=== PATIENT | female | born 1990 | race Caucasian/White ===

== ENCOUNTER 2017-05-30 05:44 | Emergency (ER) | payer OTHER ==
[~2017-05-30] VITALS: Ht 157.5 cm; Wt 56.8 kg
[~2017-05-30 05:44] MED LIST: DESO1TAB35 PO
[2017-05-30 05:46] VITALS: BP 118/72; PULSE 117; RESP 20; O2SAT 100
[2017-05-30] MEDS ORDERED: 0.9% Sodium Chloride 1,000 ML IV ONE (06:19)
[2017-05-30] MEDS ORDERED: Promethazine Inj 25 MG in 0.9% Sodium Chloride 50 ML IV ONE (06:20)
[2017-05-30] MEDS ORDERED: Haloperidol 5 mg/mL Inj IVPUSH ONE (06:20)
[2017-05-30 07:00] VITALS: BP 122/67; PULSE 69; RESP 16; O2SAT 98
[2017-05-30 07:30] VITALS: BP 122/67; PULSE 73; RESP 17; O2SAT 97
[2017-05-30 08:00] VITALS: BP 104/53; PULSE 89; RESP 17; O2SAT 100
--- NOTE | 2017-05-30 08:26 | ED.REPORT ---
HPI-Headache Date of Service May 30, 2017 ED Provider: Siobhan Chaney MD 26-year-old female presents with headache, nausea/vomiting, chest pain, shortness of breath. Her symptoms began this morning then progressively worsens prior into the ED today. She states that since her sunburn she has been sleeping in awkward positions has been generally uncomfortable. Her chest pain is limited to the area of her sunburn which is limited to the area manubrium extends across the chest distally. Her pain is reproducible, and is made worse with inspiration. Patient has a history of previous migraines for which she takes ibuprofen. She states she took 400 mg of ibuprofen this morning and this has not alleviated her headache. She has no neurological symptoms to speak of. Nursing Notes Stated Complaint: CHEST PAIN, HEADACHE, SOB Chief Complaint: General Complaint Allergies: Coded Allergies: No Known Allergies (Unverified , 05/30/17) Scheduled Desogestrel/Ethinyl Estradiol (Enskyce) 1 Each Tablet 1 TAB PO DAILY General Time Seen by MD: 06:10 Chief Complaint Headache Hx Obtained From: Patient Sudden in Onset?: Yes Onset Occurred: Just prior to arrival Symptom Duration: Since onset Severity: Current: Pain level 9 out of 10 Risk-Headache )( SAH Risk Stratification RF Statements: Risk factors reviewed )( IC Mass Risk Stratification RF Statements: Risk factors reviewed Past Medical History Past Medical History Denies Past Surgical History Denies Smoking History Unknown if Ever Smoker Social History Alcohol Use: Denies alcohol use Drug Use: Denies drug use Ambulatory Status Independent Review of Systems Constitutional: Reports: Chills, Denies: Fever GI: Reports: Nausea, Vomiting Neurologic: Denies: Dizziness Psychiatric: Reports: Anxiety Complete sys rev & neg: except as marked. Respiratory: Reports: Pleuritic pain Cardiovascular: Reports: Chest pain Female: Denies: Dysuria Physical Exam Initial Vital Signs Vital Signs (First) Date Time Temp Pulse Resp B/P Pulse Ox O2 Delivery O2 Flow Rate FiO2 05/30/17 05:46 36.6 117 20 118/72 100 Room Air Initial VS: Reviewed, Vital signs normal ENT: Mucous membranes moist, Conjunctiva normal, No scleral icterus Respiratory: Breath sounds normal, Clear to auscultation, No respiratory distress Cardiovascular: Regular rate & rhythm, Heart sounds normal, Intact distal pulses Abdomen / GI: Soft, Non-tender, No guarding, No rebound, No distention Extremities: Vascular intact, Neuro intact, No swelling, No tenderness Skin: Warm, Dry, No cyanosis Psychiatric: Mood/affect normal, Behavior normal, Normal thought content Head / Eyes: Atraumatic, Normocephalic, PERRL, EOMI, No periorbital redness, No periorbital swelling, No photophobia, No scleral icterus, Cornea clear Neck: Atraumatic, Supple, No meningismus, Full range of motion, No adenopathy, No swelling Rash / Lesion Notes: Tender erythematous lesion at the level of the manubrium of the chest is extends distally toward the shoulders bilaterally Interpretation & Diagnostics Lab Results Interpretation Test 05/30/17 06:10 05/30/17 07:19 Hold Purple Top Tube Received (Received) Hold Blue Top Tube Received (Received) Hold Red Top Tube Received (Received) Hold [place] Top Tube Received (Received) Hold Urine Received (Received) ECG Interpretation Interpreted by: ED physician Normal ECG Interpretation: Normal ECG w/ rate of... (89), Normal rate, Normal sinus rhythm, No acute ischemic changes, Normal QRS, Normal axis, Normal intervals Re-Eval/Medical Decision Med Decision/Clinical Course After the patient was provided medications for nausea as well as headache the patient's symptoms improved slightly. As the patient stayed in the ED her anxiety decreased significantly. She was tachycardic on arrival which improved with administration of medications including Benadryl. The patient's shortness of breath is likely related to her anxiety, he saturating well on room air. It appears that the chest pain is mostly limited to the anterior chest around the area of the manubrium. Due the fact that is reproducible in nature, the fact that this is a young ultimately healthy female the likelihood of this being cardiac related is unlikely. EKG shows normal findings. The patient's history appears that the headache and nausea may be indirectly related to the sunburn as well. The attempted administration of Voltaren cream however this was unavailable hospital today. Blood work did not need to be obtained at this time, as there is no concern for source of infection. Patient will follow up with ED or PCP as needed Counseled Regarding: Diagnosis, Lab results, Need for follow-up, When/why to return to ED Discharge & Departure Impression: Primary Impression: Headache Headache type: unspecified Headache chronicity pattern: acute headache Intractability: not intractable Qualified Code: R51 - Headache Additional Impression: Sunburn of second degree Disposition: Home Discharge Condition All VS Reviewed: Yes Condition: Stable Patient Instructions: Sunburn (ED) Additional Instructions: You presented emergency department today with nausea/vomiting, chest pain headache. With the workup that we were able to do we are unable to any major cause for concern at this time. Your heart and lungs appear to be functioning well, and there are no signs of neurological problems at this time. We suggest that you continue to take care of the sunburn as previously with creams/gels. Cold damp cloths decrease inflammation. Ibuprofen may also help to decrease inflammation as well as control pain. Please follow-up with your primary care doctor if symptoms are not resolving. If your status becomes acutely worse with increased shortness of breath, palpitations, fever/chills please return to the emergency department as soon as possible. Referrals: Yanira Tejeda DO (PCP) Attending Statement Patient seen and examined. No evidence of any acute cardiac etiology. Headache improved and sunburn feeling a bit better. Agree with assessment and plan as outlined above copies to: Yanira Tejeda Adam J DO May 30, 2017 08:03 Siobhan Chaney MD May 30, 2017 12:41
[2017-05-30 08:38] VITALS: BP 104/53; PULSE 89; RESP 17; O2SAT 100
== END 2017-05-30 08:39 | disposition home or self-care (01) ==
LOC: SED 05:44
DX: R51 Headache (principal); L55.1 Sunburn of second degree
CPT/HCPCS: 81025; 93005; 96361; 96374; 96375; 99284; J1200; J1630; J1885; J2550; J7030